=== PATIENT | female | born 1975 | race American Indian/Alaskan Native ===

== ENCOUNTER 2018-01-26 23:40 | Emergency (ER) | payer SELFPAY ==
[2018-01-26 23:47] VITALS: BP 117/79
[2018-01-27] MEDS ORDERED: TORADOL IV ONE (01:58)
[2018-01-27] MEDS ORDERED: BENADRYL IV ONE (01:58)
[2018-01-27] MEDS ORDERED: REGLAN IV ONE (01:58)
--- NOTE | 2018-01-27 02:02 | Emergency Department Report ---
ED Headache HPI - General Chief Complaint: Headache Stated Complaint: HEADACHE Time Seen by Provider: 01/27/18 01:48 - History of Present Illness Initial Comments: 42-year-old -[place] female comes in for headache that she's had 3 days. Patient reports that she was nauseated and vomited yesterday. Patient reports that she took ibuprofen about 3:30 PM which she said helped a little. Patient does admit to photophobia. She denies any nasal congestion and runny nose no sneezing no trauma. No past medical history currently taking no meds regularly has no known drug. Timing/Duration: other (3 days) Quality: pressure, throbbing Head Injury Location: occipital Recent Head Trauma: no recent headache/trauma Associated Symptoms: nausea/vomiting. denies: facial pain, fever/chills, nasal congestion, nasal drainage Allergies/Adverse Reactions: Allergies No Known Allergies Allergy (Unverified 01/26/18 23:47) Home Medications: Ambulatory Orders Butalb/Acetaminophen/Caffeine [Fioricet 50-300-40 mg CAP] 1 cap PO Q8HR PRN #14 cap 01/27/18 ED Review of Systems ROS: Stated complaint: HEADACHE Other details as noted in HPI Gastrointestinal: nausea (resolved ) Neurological: headache. denies: weakness, numbness, abnormal gait ED Past Medical Hx - Past Medical History Previous Medical History?: No - Surgical History Past Surgical History?: No - Social History Smoking Status: Never Smoker Substance Use Type: None - Medications Home Medications: Home Medications Medication Instructions Recorded Confirmed Last Taken Type Butalb/Acetaminophen/Caffeine 1 cap PO Q8HR PRN #14 cap 01/27/18 Unknown Rx [Fioricet 50-300-40 mg CAP] ED Physical Exam - General Limitations: No Limitations General appearance: alert, in no apparent distress - Head Head exam: Present: atraumatic, normocephalic - Eye Eye exam: Present: EOMI - ENT ENT exam: Present: mucous membranes moist - Neck Neck exam: Present: full ROM. Absent: tenderness, lymphadenopathy - Extremities Exam Extremities exam: Present: normal inspection, full ROM. Absent: pedal edema - Back Exam Back exam: Present: normal inspection - Neurological Exam Neurological exam: Present: alert, oriented X3 - Expanded Neurological Exam Expanded Cranial nerves: EOM's Intact: Normal, Gag Reflex: Normal, Tongue Deviation: Normal, Nystagmus: Normal, Facial Sensation: Normal, Facial Palsy with Forehead Movement: Normal, Facial Palsy without Forehead Movement: Normal Cerebellar function: Finger to Nose: Normal, Heel to García: Normal, Romberg: Normal Upper motor neuron: Karl Neglect: Normal, Pronator Drift: Normal, Babinski Sign : Normal, Sensory Extinction: Normal Sensory exam: Upper Extremity Light Touch: Normal, Upper Extremity Pin Prick: Normal, Upper Extremity Temperature: Normal, UE 2 Point Discrimination: Normal, Lower Extremity Light Touch: Normal, Lower Extremity Pin Prick: Normal, Lower Extremity Temperature: Normal, LE 2 Point Discrimination: Normal Motor strength exam: RUE: 4, LUE: 4, RLE: 4, LLE: 4 Best Eye Response (Stacy): (4) open spontaneously Best Motor Response (Renzo): (6) obeys commands Best Verbal Response (Renzo): (5) oriented Stacy Total: 15 - Psychiatric Psychiatric exam: Present: normal affect - Skin Skin exam: Present: warm, dry, intact, normal color. Absent: rash ED Course Vital Signs 01/26/18 23:46 Temperature 98.9 F Pulse Rate 82 Respiratory 18 Rate Blood Pressure 117/79 O2 Sat by Pulse 96 Oximetry Critical care attestation.: If time is entered above; I have spent that time in minutes in the direct care of this critically ill patient, excluding procedure time. ED Disposition Clinical Impression: Head ache Qualifiers: Headache type: unspecified Headache chronicity pattern: acute headache Intractability: intractable Qualified Code(s): R51 - Headache Disposition: DC- TO HOME OR SELFCARE Is pt being admited?: No Does the pt Need Aspirin: No Condition: Stable Instructions: Acute Headache (ED) Additional Instructions: Please take migraine medication as prescribed. Please follow up with her primary care provider and neurologist. Prescriptions: Butalb/Acetaminophen/Caffeine [Fioricet 50-300-40 mg CAP] 1 cap PO Q8HR PRN #14 cap PRN Reason: Headache Referrals: PRIMARY CARE,MD [Primary Care Provider] - 3-5 Days Your,Provider [Other] - 3-5 Days [facility] [Provider Group] - 3-5 Days Forms: Work/School Release Form(ED)
== END 2018-01-27 03:19 | disposition home or self-care (01) ==
LOC: ED 23:40
DX: R51 Headache (principal); R11.2 Nausea with vomiting, unspecified
CPT/HCPCS: 96374; 96375; 99282; J1200; J1885; J2765